=== PATIENT | male | born 1980 | race Caucasian/White ===

== ENCOUNTER 2016-04-23 10:43 | Emergency (ER) | payer OTHER ==
[~2016-04-23] VITALS: Ht 185.4 cm; Wt 118.2 kg
[2016-04-23 10:50] VITALS: Ht 185.4 cm; Wt 118.2 kg
--- NOTE | 2016-04-23 12:26 | RADRPT ---
PROCEDURE: XR Knee. CLINICAL INDICATION: Knee pain TECHNIQUE: Three views of the left knee are available for review. COMPARISON: None available FINDINGS: The medial and lateral femorotibial compartments are preserved, as is the patellofemoral compartment . There is no acute osseous abnormality, marginal erosion or evidence of fracture. A large joint eff usion is present and there is prepatellar soft tissue swelling. IMPRESSION: 1. No radiographic evidence for fracture. 2. Large joint effusion and prepatellar soft tissue swelling. An MRI or CT may be obtained if furt her detail is warranted. RPTAT: XX .Fernando Webber MD, MD Date Time Electronically viewed and signed by .Fernando Webber MD, on 04/23/2016 12:26 .d/
[2016-04-23] MEDS ORDERED: IBUP800T25 PO (12:29)
[2016-04-23] MEDS ORDERED: ULT50 PO (12:29)
--- NOTE | 2016-04-23 12:35 | ERD ---
ER Documentation Chief Complaint Date/Time DATE: 04/23/16 TIME: 12:34 Chief Complaint LEFT KNEE SWELLING,PAIN/INJURY HPI This 35-year-old male complains of left knee pain and swelling after hitting onto furniture 2 days ago. He has had this intermittently in the past which resolves. Denies any falling or twisting or significant trauma. ROS All systems reviewed and are negative except as per history of present illness. Medications Home Meds Active Scripts Tramadol HCl (Tramadol HCl) 50 Mg Tablet, 50 MG PO Q4 Y for PAIN, #20 TAB Prov:RENITA DODD MD 04/23/16 Ibuprofen* (Motrin*) 800 Mg Tab, 800 MG PO Q6, #20 TAB Prov:RENITA DODD MD 04/23/16 PMhx/Soc Medical and Surgical Hx: pt denies Medical Hx, pt denies Surgical Hx Hx Alcohol Use: No Hx Substance Use: No Hx Tobacco Use: No Physical Exam Vitals Vital Signs Date Time Temp Pulse Resp B/P Pulse Ox O2 Delivery O2 Flow Rate FiO2 04/23/16 10:50 97.8 95 19 142/86 98 Physical Exam Const: [] Alert, [id number]. Head: Atraumatic Eyes: Normal Conjunctiva ENT: Normal External Ears, Nose and Mouth. Neck: Full range of motion..~ No meningismus. Resp: Clear to auscultation bilaterally Cardio: Regular rate and rhythm, no murmurs Abd: Soft, non tender, non distended. Normal bowel sounds Skin: No petechiae or rashes Back: No midline or flank tenderness Ext: No cyanosis, or edema. There is a large suprapatellar effusion present without deformities, warmth or erythema. There is no appreciable instability. There is some generalized tenderness on the distal femur laterally. Neur: Awake and alert Psych: Normal Mood and Affect Procedures/MDM X-ray left knee 3V Interpreted by me: Bones: No fracture Joints: No dislocation Foreign body: None. Impression no appreciated fracture dislocation. Large suprapatellar effusion. Patient was placed in a left knee immobilizer and was neurovascular intact after knee immobilizer. Patient presents with left knee pain or contusion or sprain. Signs or symptoms not consistent with bacterial infection, septic arthritis, fracture, dislocation. He may have a ligamentous injury but to follow-up with orthopedics for further evaluation and management. He was referred to local orthopedist but advised he may need authorization from primary care doctor. He should return sooner for fevers, redness, new symptoms. Departure Diagnosis: Primary Impression: Knee injury Encounter type: initial encounter Laterality: left Qualified Code: S89.92XA - Knee injury, left, initial encounter Condition: Stable Patient Instructions: Knee Sprain Referrals: COMPA BERGER MD [facility] Hours: Fri-Fri 9:00 AM - 5:00 PM Additional Instructions: X-ray read as normal. Recommend see orthopedist for further evaluation and management within the next week. May need authorization from primary care doctor for orthopedist visit. RENITA DODD MD Apr 23, 2016 12:35
== END 2016-04-23 13:20 | disposition home or self-care (01) ==
LOC: FTE 10:43
DX: S89.92XA Unspecified injury of left lower leg, initial encounter (principal); W22.03XA Walked into furniture, initial encounter; Y92.9 Unspecified place or not applicable
CPT/HCPCS: 73562